=== PATIENT | male | born 1970 | race Caucasian/White ===

== ENCOUNTER → 2020-01-09 10:26 | Outpatient (CLI) | payer OTHER, SELFPAY ==
--- NOTE | ~2020-01-09 | US_ITS ---
EXAMINATION: US right upper quadrant EXAM DATE: 01/09/2020 10:55 INDICATION: Elevated liver enzymes. TECHNIQUE: Multiple grayscale and Doppler images of the abdomen right upper quadrant were obtained (karl y a technologist who performed the scan) and subsequently reviewed. There is no prior study for [place] [facility]. FINDINGS: The pancreatic head and body are normal in appearance. The pancreatic tail is not visualized. Foca l hepatic steatosis in the right liver lobe, regions of hepatic steatosis.. There is no evidence of intrahepatic biliary duct dilation. Portal venous flow was seen in the hepatopedal, normal direction and has normal Doppler waveform. No right-sided hydronephrosis. Common bile duct measures 4 mm, which is normal. The gallbladder wall is normal in thickness, with ex pected amount of distention. No sonographic evidence of pericholecystic fluid. There is large gallst one measuring 2.6 cm. Technologist performing exam reports patient did not demonstrate sonographic Keller's sign. Please note that this sign is less reliable in patients who have received pain medica tion. IMPRESSION: 1. Cholelithiasis. 2. Hepatic steatosis. Reviewed, dictated and finalized at location B.
== END ==
PROVIDERS: PCP Student in an Organized Health Care Education/Training Program; Visit Provider Student in an Organized Health Care Education/Training Program
DX: K76.0 Fatty (change of) liver, not elsewhere classified (principal); K80.20 Calculus of gallbladder without cholecystitis without obstruction
CPT/HCPCS: 76705

== ENCOUNTER 2020-05-06 22:10 | Emergency (ER) | payer OTHER, SELFPAY ==
[2020-05-06 22:12] VITALS: BP 123/85; PULSE 93; RESP 14; TEMP 36.4; O2SAT 98
[2020-05-06] MEDS: diphenhydrAMINE HCl INJ 50 MG/ML VIAL 25 MG IV PUSH (22:32)
[2020-05-06] MEDS: methylPREDNISolone SOD SUCC 125 MG VIAL IV PUSH (22:32)
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
== END 2020-05-07 00:31 | disposition home or self-care (01) ==
PROVIDERS: Emergency Provider Nurse Practitioner; PCP Student in an Organized Health Care Education/Training Program
DX: L50.0 Allergic urticaria (principal); T42.8X5A Adverse effect of antiparkinsonism drugs and other central muscle-tone depressants, initial encounter
CPT/HCPCS: 96374; 96375; 99284; J1200; J2930

== ENCOUNTER 2020-07-30 10:31 | Outpatient (NON) | payer OTHER, SELFPAY ==
[2020-07-30 22:42] LABS: SARS-CoV-2 RNA PCR Negative
== END 2020-07-30 10:32 ==
LOC: ANHCOVIDDT 10:32
PROVIDERS: PCP Student in an Organized Health Care Education/Training Program; Visit Provider Student in an Organized Health Care Education/Training Program
DX: Z20.822 Contact with and (suspected) exposure to COVID-19 (principal); H60.393 Other infective otitis externa, bilateral; H66.91 Otitis media, unspecified, right ear
CPT/HCPCS: C9803; U0003; U0005

== ENCOUNTER 2021-04-14 17:47 | Emergency (ER) | payer OTHER, SELFPAY ==
[2021-04-14 17:56] VITALS: BP 130/91; PULSE 85; RESP 18; TEMP 36.6; O2SAT 98
--- NOTE | 2021-04-14 17:58 | ED.BACK ---
HPI - Back Pain/Injury General Chief Complaint: Back Pain/Injury Stated Complaint: Back Pain Time Seen by Provider: 04/14/21 18:03 Source: patient and RN notes reviewed Mode of arrival: ambulatory Limitations: no limitations History of Present Illness HPI Narrative: 50-year-old male presents concern for pain to the left low back. He reports 6 days ago he bent over to flower buncher or picker a heavy pumpkin when he began to pick it up and left back up he felt a tweak and pinch in his left low back. Reports since that time he has been using ice, heat, ibuprofen, naproxen, Tylenol without relief. Reports symptoms are getting worse. Reports sitting down for long periods, laying for long periods make it worse. Reports standing makes it better. He denies perianal anesthesia, loss of bowel or bladder function, weakness in extremity, abdominal pain, fever, open skin, rash. MD elicited complaint: back pain Related Data Allergies Allergy/AdvReac Type Severity Reaction Status Date / Time ampicillin Allergy Mild rash Verified 04/14/21 17:54 Review of Systems Review of Systems: CONSTITUTIONAL: Denies malaise, chills, sweats, or fever. CARDIOVASCULAR: Denies chest pain, palpitations, or edema. RESPIRATORY: Denies cough or dyspnea. GASTROINTESTINAL: Denies abdominal pain, nausea, vomiting, diarrhea, loss of bowel function GENITOURINARY: Denies loss of bladder function or perianal anesthesia SKIN: Denies open skin, rash or itching. MUSCULOSKELETAL: Reports left low back pain that radiates down the left leg NEUROLOGIC: Denies numbness, weakness, or headache. PSYCHIATRIC: Denies anxiety or depression. All systems reviewed & are unremarkable except as noted in HPI and below [facility] Past Medical History Medical History No significant past medical history Surgical History Surgical History History of hernia surgery umb Hx of tonsillectomy Social History Social History Smoking status: Never smoker Alcohol intake: current Comments At time of signature, agree with nursing past medical, surgical, social and family history. There is no relevant family history pertinent to the presenting complaint Exam Narrative: GENERAL: Well-appearing, well-nourished, and in no acute distress. HEAD: Normocephalic, atraumatic. EYES: PERRLA and EOMI. NECK: Supple. No lymphadenopathy. CHEST: Clear to auscultation. No respiratory distress. HEART: Regular rate and rhythm. Distal pulses palpable and equal, cap refill <3 seconds ABDOMEN: Soft, nontender, nondistended, normal active bowel sounds, no palpable or pulsatile masses. No CVA tenderness MUSCULOSKELETAL: Normal range of motion and strength in all extremities; 5/5 strength with hip flexion and extension, dorsiflexion and extension, knee flexion and extension, plantar flexion and extension. Normal sensation in dermatomal distributions with sensitivity to light touch and pain. No midline back tenderness to palpation. No paraspinal tenderness. Transfers from lying to sitting to standing. SKIN: Warm, dry, no rash. No ecchymosis, erythema, open wounds to back. NEURO: No focal deficits. Alert and oriented x3. Reflexes intact. Normal gait. PSYCH: Normal mood and affect Course Course Emergency Course: Patient given 60 mg IM Toradol. Patient is aware of diagnosis, understands and agrees to treatment plan. Anticipatory guidance given. Patient agrees to follow-up as directed and is aware of reasons to seek care at the emergency department. Portions of this record may have been created with voice recognition software Vital Signs Vital signs: Vital Signs Temperature 97.9 F 04/14/21 17:56 Pulse Rate 85 04/14/21 17:56 Respiratory Rate 18 04/14/21 17:56 Blood Pressure 130/91 H 04/14/21 17:56 Pulse Oximetry 98 04/14/21 17:56 Temperature 97.9 F
[2021-04-14] MEDS: KETOROLAC (*BKC) 60 MG/2 ML VIAL IM (18:13)
== END 2021-04-14 18:31 | disposition home or self-care (01) ==
PROVIDERS: Emergency Provider Nurse Practitioner; PCP Student in an Organized Health Care Education/Training Program
DX: M54.5 Low back pain (principal)
CPT/HCPCS: 96372; 99213; G0463; J1885

== ENCOUNTER 2022-05-23 08:16 | Outpatient (CLI) | payer OTHER, SELFPAY ==
--- NOTE | ~2022-05-23 | MR_ITS ---
EXAMINATION: MR knee LT wo con DATE: 05/23/2022 08:48 INDICATION: Left knee pain TECHNIQUE: Magnetic resonance imaging (MRI) of the left knee was performed without intravenous contra st. Sequences included coronal PD-weighted FSE, coronal PD-weighted FS FSE, sagittal T2-weighted FSE , sagittal PD-weighted FS FSE and axial PD weighted fat saturated FSE. COMPARISON: None. FINDINGS: Medial compartment: Complex vertical parrot beak configuration tear at the posterior horn of the medial meniscus which be gins at the free edge and extends peripherally and medially to the level of the junction of the middl e and peripheral thirds of the meniscus. Articular cartilage is normal. Lateral compartment: Lateral meniscus is normal. Articular cartilage is normal. Patellofemoral compartment: Chondral swelling and deep fissuring at the medial patellar facet. Cartilage at the trochlea and late ral patellar facet is normal. Ligaments and tendons: Anterior and posterior cruciate ligaments are normal. The medial collateral ligament and fibular franko ateral ligament complex are normal. The extensor mechanism is normal. The visualized medial and later al hamstring tendons as well as the iliotibial band are normal. Fluid: Minimal left knee joint effusion at the suprapatellar pouch. Small amount of fluid tracks caudally al jignesh the popliteal recess. Small Juarez's cyst. No loose osteochondral bodies identified. Mild edema an terior to the patellar tendon without discrete bursal fluid collection. Osseous/other: Normal marrow signal. No fracture or pathologic marrow replacing process. IMPRESSION: 1. Complex parrot beak configuration tear of the posterior horn of the medial meniscus. 2. 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 Reviewed, dictated and finalized at location A. [employer] IMPRESSION: 1. Complex parrot beak configuration tear of the posterior horn of the medial m eniscus. 2. 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
== END 2022-05-23 08:17 ==
PROVIDERS: PCP Student in an Organized Health Care Education/Training Program; Visit Provider Registered Nurse
DX: S83.232A Complex tear of medial meniscus, current injury, left knee, initial encounter (principal); X58.XXXA Exposure to other specified factors, initial encounter
CPT/HCPCS: 73721

== ENCOUNTER 2022-12-19 08:25 | Emergency (ER) | payer OTHER, SELFPAY ==
--- NOTE | 2022-12-19 08:31 | ED.EAR ---
HPI - Ear Problem General Chief complaint: Ear Stated complaint: lt ear pain Time Seen by Provider: 12/19/22 08:31 Source: patient Mode of arrival: ambulatory Limitations: no limitations History of Present Illness HPI Narrative: Patient is a 51-year-old male who presents with 2 days of left ear pain. Patient states he felt like he had a fever and was sweaty the day symptoms started but has since resolved. Patient has used [id number] ear drops with little to no relief. Has not taken anything else for symptoms. Patient reports mild congestion, denies seasonal allergies. Went to the dentist roughly 2 weeks ago and had dental work done on right side of mouth, stated there was nothing found on left side of mouth. Denies any headache, sore throat, cough, shortness of breath, nausea, vomiting, diarrhea. MD Complaint: ear pain Related Data Home Medications Medication Instructions Recorded Confirmed meloxicam 15 mg tablet 15 mg PO DAILY 12/19/22 12/19/22 Allergies Allergy/AdvReac Type Severity Reaction Status Date / Time ampicillin AdvReac Mild rash Verified 12/19/22 08:33 Review of Systems Review of Systems: All systems reviewed & are unremarkable except as noted in HPI and below Constitutional: Constitutional: Denies body ache(s), Denies chills, Denies fever(s), Denies headache(s) and Denies malaise Eyes: Eyes: Denies blurry vision, Denies eye discharge and Denies irritation ENT: Reports otalgia, Denies headache(s), Reports nasal congestion, Denies nasal discharge and Denies sore throat Cardiovascular: Cardiovascular: Denies chest pain, Denies edema, Denies palpitations and Denies dyspnea on exertion Respiratory: Respiratory: Denies cough and Denies dyspnea on exertion Gastrointestinal: Gastrointestinal: Denies abdominal pain, Denies diarrhea, Denies nausea and Denies vomiting Musculoskeletal: Musculoskeletal: Denies back pain, Denies arthralgias and Denies muscle weakness Integumentary/Breasts: Skin/Breast: Denies pruritus and Denies rash Neurologic: Denies headache(s) Psychiatric: Psychiatric: Reports no additional psychiatric complaints Endocrine: Endocrine: Denies palpitations PMFSH Past Medical History Medical History No significant past medical history Surgical History Surgical History History of hernia surgery umb Hx of tonsillectomy Social History Social History Smoking status: Never smoker Alcohol intake: current Comments At time of signature, agree with nursing past medical, surgical, social and family history. There is no relevant family history pertinent to the presenting complaint? Exam Const: General: cooperative, healthy appearing, no acute distress and well nourished Nutritional Appearance: well nourished Orientation/consciousness: patient oriented x3 Limitations: no limitations HENMT: Head: normal to inspection, normocephalic and atraumatic Ears: hearing grossly normal bilaterally, external ears normal, TM's normal bilaterally, EAC's normal and no periauricular adenopathy Face/Nose/Sinus: Normal external nose present, Normal nares present, Normal nasal mucous membranes and turbinates present, No nasal discharge present, normal facial exam and sinuses nontender Face and sinus: normal facial exam and sinuses nontender Mouth: Yes Normal oral and palatal mucosa present, Yes lip normal, Yes tongue normal and Yes moist mucous membranes Throat: posterior oropharynx normal, uvula midline and tonsils absent Eyes: General: appearance normal, both eyes and all related structures Alignment and Position: alignment normal and position normal Eyelids: eyelids normal Pupils: Equal, round and reactive pupils present EOM: EOMs intact bilaterally Neck: Neck: normal visual inspection, full ROM, no lymphadenopathy and sup
[2022-12-19 08:39] VITALS: BP 111/84; PULSE 82; RESP 16; TEMP 36.2; O2SAT 100
== END 2022-12-19 08:50 | disposition home or self-care (01) ==
PROVIDERS: Emergency Provider Nurse Practitioner Family; PCP Student in an Organized Health Care Education/Training Program
DX: H92.02 Otalgia, left ear (principal); R09.81 Nasal congestion; M17.12 Unilateral primary osteoarthritis, left knee
CPT/HCPCS: 99211; G0463